=== PATIENT | male | born 1955 | race Caucasian/White ===

== ENCOUNTER 2017-10-03 08:25 | Outpatient (CLI) | payer OTHER ==
--- NOTE | 2017-10-03 09:51 | Ultrasound Report ---
ULTRASOUND ABDOMEN COMPLETE: TECHNIQUE: Transabdominal ultrasound with color Doppler interrogation. HISTORY: Right upper quadrant abdominal pain. COMPARISON: none. FINDINGS: LIVER: Normal. BILIARY SYSTEM: Normal. PANCREAS: Normal. SPLEEN: Normal. KIDNEYS: Normal. AORTA/IVC: Normal. ASCITES: None. IMPRESSION: Unremarkable exam.
== END 2017-10-03 08:26 | disposition home or self-care (01) ==
LOC: US 08:25
PROVIDERS: ATTEND Internal Medicine
DX: R10.11 Right upper quadrant pain (principal)
CPT/HCPCS: 76700

== ENCOUNTER 2020-05-09 11:12 | Outpatient (CLI) | payer OTHER ==
--- NOTE | 2020-05-09 13:15 | XRay Report ---
RIGHT SHOULDER 3 VIEWS INDICATION / CLINICAL INFORMATION: PAIN IN RIGHT SHOULDER. COMPARISON: None available. FINDINGS: Mild hypertrophic spurring at the acromioclavicular joint. Minimal soft tissue calcification in the r egion of the rotator cuff, suggesting calcific tendinitis. No fracture or other acute abnormality. Signer Name: Fabian Larsen MD Signed: 05/09/2020 1:10 PM Workstation Name: [id number]
== END 2020-05-09 11:13 | disposition home or self-care (01) ==
LOC: XRAY 11:12
PROVIDERS: ATTEND Internal Medicine
DX: M25.811 Other specified joint disorders, right shoulder (principal); M77.8 Other enthesopathies, not elsewhere classified